=== PATIENT | female | born 1945 | race Caucasian/White ===

== ENCOUNTER 2024-01-28 11:04 | Day surgery (SDC) | payer BC, MEDICARE ==
[2024-01-24 10:36] LABS: BASOPHILS # (AUTO) 0.1 X10'3 (0-0.2); BASOPHILS % (AUTO) 0.9 % (0-1); EOSINOPHILS # (AUTO) 0.1 X10'3 (0-0.9); EOSINOPHILS % (AUTO) 1.9 % (0-6); HEMATOCRIT 38.9 % (35.0-45.0); HEMOGLOBIN 12.5 g/dl (12.0-16.0); LYMPHOCYTES # (AUTO) 1.4 X10'3 (1.1-4.8); LYMPHOCYTES % (AUTO) 23.5 % (21-51); MEAN CORPUSCULAR HEMOGLOBIN 30.7 PG (27.0-31.0); MEAN CORPUSCULAR VOLUME 95.8 FL (78-98); MONOCYTES # (AUTO) 0.5 X10'3 (0-0.9); MONOCYTES % (AUTO) 7.5 % (2-12); NEUTROPHILS % (AUTO) 66.2 % (42-75); PLATELET COUNT 118 X10'3 (140-440); RED BLOOD COUNT 4.06 X10'6 (4.20-5.60); RED CELL DISTRIBUTION WIDTH 16.5 % (11.5-14.5)
[2024-01-24 10:47] LABS: APTT 30 SECONDS (22-32); INR 3.1 INR; PROTHROMBIN TIME 30.8 SECONDS (9.0-12.0)
[2024-01-24 10:57] LABS: ALBUMIN 4.6 G/DL (3.4-5.0); ANION GAP 13 (8-16); BLOOD UREA NITROGEN 63 MG/DL (7-18); CALCIUM 9.5 MG/DL (8.5-10.1); CHLORIDE 102 MMOL/L (99-107); CHOL/HDL RATIO 2.6 (0.00-4.99); CHOLESTEROL 90 MG/DL (0-200); CREATININE 1.26 MG/DL (0.40-0.90); GLUCOSE 163 MG/DL (70-104); HDL CHOLESTEROL 35 MG/DL (35-60); LDL CHOLESTEROL 37 MG/DL (50-100); SODIUM 139 MMOL/L (135-145); TOTAL CARBON DIOXIDE 24.5 MMOL/L (24-32); TRIGLYCERIDES 162 MG/DL (20-135); eGFR 41 ML/MIN
[~2024-01-28] VITALS: Ht 175.3 cm; Wt 113.4 kg
[2024-01-28] VITALS (11 sets, daily range): BP systolic 148–195; BP diastolic 71–95; PULSE 77–100; RESP 12–17; TEMP 98.4; O2SAT 97–100
[~2024-01-28 11:04] MED LIST: ASPI-611 PO; CARCD120C PO; CLOP75TA34 PO; COU1T PO; DIGO125T PO; ENAL20TA75 PO; FURO-150 PO; GABA-330 PO; GABA-341 PO; HYDR-3965 PO; ISOS20TA57 PO; METF500T PO; PANT40TA39 PO; POTA8TAB46 PO; PRAV40TA65 PO; TRIA1TAB5 PO
[2024-01-28] MEDS ORDERED: diphenhydrAMINE 25mg capsule PO PRN (11:35)
[2024-01-28] MEDS ORDERED: LIDOcaine 1% (10mg/ml) 2ml vial ONE (12:00)
[2024-01-28 12:01] LABS: INR 1.5 INR; PROTHROMBIN TIME 16.1 SECONDS (9.0-12.0)
[2024-01-28] MEDS ORDERED: midazolam 1 mg/ML 2ml injection ONE (12:01)
[2024-01-28] MEDS ORDERED: iohexol 350MG/ML 100ml bottle IV ONE (12:01)
[2024-01-28] MEDS ORDERED: heparin 1,000unit/ml 10ml vial 10 ML ONE (12:01)
[2024-01-28] MEDS ORDERED: verapamil 2.5 mg/ml inj IV ONE (12:01)
[2024-01-28] MEDS ORDERED: fentaNYL/PF 50MCG/1 ML 2ML syringe ONE (12:01)
[2024-01-28] MEDS ORDERED: nitroGLYCERIN 500mcg/5mL D5W 5 ML IV ONE (12:04)
[2024-01-28] MEDS ORDERED: NITR0.4T48 SL (12:08)
[2024-01-28] MEDS ORDERED: ATOR-2 PO (12:08)
[2024-01-28] MEDS ORDERED: ALLO300T8 PO (12:08)
[2024-01-28] MEDS ORDERED: GLIM4TAB7 PO (12:08)
[2024-01-28] MEDS ORDERED: VALS160T30 PO (12:08)
[2024-01-28] MEDS ORDERED: GABA300C PO (12:08)
[2024-01-28] MEDS ORDERED: CARV6.2553 PO (12:08)
[2024-01-28] MEDS ORDERED: POTA-206 PO (12:08)
[2024-01-28] MEDS ORDERED: SPIR25TA5 PO (12:08)
[2024-01-28] MEDS: LORazepam 0.5 MG tablet PO PRN (12:09)
[2024-01-28] MEDS: normal saline 1,000 ML IV SCH (12:09)
[2024-01-28] MEDS ORDERED: WARF3TAB56 PO (12:11)
[2024-01-28] MEDS ORDERED: WARF-65 PO (12:11)
[2024-01-28] MEDS ORDERED: LIDOcaine 1% 30ml preserv. free vial ONE (12:29)
[2024-01-28] MEDS ORDERED: hydrALAZINE 20mg/ml inj. IV ONE (13:03)
[2024-01-28] MEDS ORDERED: HYDROcodone/acetaminophen 10/325mg tab PO PRN (14:35)
[2024-01-28] MEDS ORDERED: OXAZEpam 15mg capsule PO PRN (14:35)
[2024-01-28] MEDS ORDERED: ondansetron/PF 4mg/2ml inj IV PRN (14:35)
[2024-01-28] MEDS ORDERED: proCHLORperazine 10 MG/2 ml inj IV PRN (14:35)
[2024-01-28] MEDS ORDERED: HYDROcodone/acetaminophen 5mg/325mg tablet PO PRN (14:35)
[2024-02-18] MEDS ORDERED: LOSA-415 PO (12:58)
[2024-02-18] MEDS ORDERED: ERGO500093 PO (12:58)
[2024-02-18] MEDS ORDERED: GLIP-20 PO (12:58)
[2024-02-18] MEDS ORDERED: DOXA2TAB92 PO (12:58)
[2024-02-19] MEDS ORDERED: CHOL100024 PO (13:16)
== END 2024-01-28 18:00 | disposition home or self-care (01) ==
LOC: SSTAY O 11:04
PROVIDERS: ATTEND Student in an Organized Health Care Education/Training Program
DX: I35.0 Nonrheumatic aortic (valve) stenosis (principal); I49.3 Ventricular premature depolarization; I45.10 Unspecified right bundle-branch block; Z53.8 Procedure and treatment not carried out for other reasons; I10 Essential (primary) hypertension; E11.9 Type 2 diabetes mellitus without complications; I25.10 Atherosclerotic heart disease of native coronary artery without angina pectoris; E78.00 Pure hypercholesterolemia, unspecified; I48.91 Unspecified atrial fibrillation; G47.33 Obstructive sleep apnea (adult) (pediatric); Z79.01 Long term (current) use of anticoagulants; Z79.84 Long term (current) use of oral hypoglycemic drugs; Z79.899 Other long term (current) drug therapy; Z88.0 Allergy status to penicillin; Z88.5 Allergy status to narcotic agent
CPT/HCPCS: 36415; 80048; 80061; 82948; 85025; 85610; 85730; 93005; 93460; 99152; 99153; J0360; J1644; J2250; J3010; J3490; J7030; Q9967; A6449; C1751; C1894

== ENCOUNTER 2024-03-09 11:30 | Outpatient (CLI) | payer OTHER ==
[~2024-03-09 11:30] MED LIST changes: +ALLO300T8 PO; -ASPI-611 PO; +ATOR-2 PO; -CARCD120C PO; +CARV6.2553 PO; +CHOL100024 PO; -CLOP75TA34 PO; -COU1T PO; -DIGO125T PO; -ENAL20TA75 PO; -GABA-330 PO; -GABA-341 PO; +GABA300C PO; +GLIM4TAB7 PO; -HYDR-3965 PO; +NITR0.4T48 SL; +POTA-206 PO; -POTA8TAB46 PO; -PRAV40TA65 PO; +SPIR25TA5 PO; -TRIA1TAB5 PO; +VALS160T30 PO; +WARF-65 PO; +WARF3TAB56 PO
[2024-03-09 12:00] LABS: BASOPHILS # (AUTO) 0.1 X10'3 (0-0.2); BASOPHILS % (AUTO) 0.8 % (0-1); EOSINOPHILS # (AUTO) 0.1 X10'3 (0-0.9); EOSINOPHILS % (AUTO) 1.1 % (0-6); HEMATOCRIT 35.3 % (35.0-45.0); HEMOGLOBIN 11.4 g/dl (12.0-16.0); LYMPHOCYTES # (AUTO) 1.8 X10'3 (1.1-4.8); LYMPHOCYTES % (AUTO) 23.3 % (21-51); MEAN CORPUSCULAR HEMOGLOBIN 30.9 PG (27.0-31.0); MEAN CORPUSCULAR HGB CONC 32.3 g/dL (33.0-36.5); MEAN CORPUSCULAR VOLUME 95.5 FL (78-98); MEAN PLATELET VOLUME 9.6 FL (7.4-10.4); MONOCYTES # (AUTO) 0.5 X10'3 (0-0.9); NEUTROPHILS # (AUTO) 5.4 X10'3 (1.8-7.7); NEUTROPHILS % (AUTO) 68.8 % (42-75); PLATELET COUNT 137 X10'3 (140-440); RED BLOOD COUNT 3.69 X10'6 (4.20-5.60); RED CELL DISTRIBUTION WIDTH 17.5 % (11.5-14.5); WHITE BLOOD COUNT 7.9 X10'3 (4.5-11.0)
[2024-03-09 12:11] LABS: ALBUMIN 4.1 G/DL (3.4-5.0); ANION GAP 10 (8-16); BLOOD UREA NITROGEN 36 MG/DL (7-18); BUN/CREATININE RATIO 33.6 (10.0-20.0); CALCIUM 9.3 MG/DL (8.5-10.1); CHLORIDE 102 MMOL/L (99-107); CREATININE 1.07 MG/DL (0.40-0.90); GLUCOSE 114 MG/DL (70-104); SODIUM 141 MMOL/L (135-145); TOTAL CARBON DIOXIDE 29.3 MMOL/L (24-32); eGFR 50 ML/MIN
[2024-03-09 12:13] LABS: INR 2.9 INR; PROTHROMBIN TIME 29.3 SECONDS (9.0-12.0)
== END 2024-03-09 23:59 | disposition home or self-care (01) ==
LOC: LAB 11:30
PROVIDERS: ATTEND Family Medicine
DX: N17.9 Acute kidney failure, unspecified (principal)
CPT/HCPCS: 36415; 80048; 85025; 85610

== ENCOUNTER 2024-06-20 22:30 | Emergency (ER) | payer MEDICARE ==
[~2024-06-20] VITALS: Ht 175.3 cm; Wt 115.1 kg
[~2024-06-20 22:30] MED LIST changes: -GABA300C PO; +GABA300T28 PO; +GLIM1TAB56 PO; -GLIM4TAB7 PO; -ISOS20TA57 PO; +METF-436 PO; -METF500T PO
[2024-06-20 23:38] LABS: BASOPHILS # (AUTO) 0.1 X10'3 (0-0.2); BASOPHILS % (AUTO) 0.8 % (0-1); EOSINOPHILS # (AUTO) 0.4 X10'3 (0-0.9); EOSINOPHILS % (AUTO) 4.1 % (0-6); HEMATOCRIT 24.9 % (35.0-45.0); LYMPHOCYTES # (AUTO) 1.5 X10'3 (1.1-4.8); LYMPHOCYTES % (AUTO) 16.3 % (21-51); MEAN CORPUSCULAR HEMOGLOBIN 30.9 PG (27.0-31.0); MEAN CORPUSCULAR VOLUME 96.5 FL (78-98); MEAN PLATELET VOLUME 8.4 FL (7.4-10.4); MONOCYTES # (AUTO) 0.6 X10'3 (0-0.9); MONOCYTES % (AUTO) 6.4 % (2-12); NEUTROPHILS # (AUTO) 6.6 X10'3 (1.8-7.7); NEUTROPHILS % (AUTO) 72.4 % (42-75); PLATELET COUNT 209 X10'3 (140-440); RED BLOOD COUNT 2.58 X10'6 (4.20-5.60); RED CELL DISTRIBUTION WIDTH 17.9 % (11.5-14.5); WHITE BLOOD COUNT 9.1 X10'3 (4.5-11.0)
[2024-06-20 23:55] LABS: ANION GAP 6 (8-16); BLOOD UREA NITROGEN 20 MG/DL (7-18); BUN/CREATININE RATIO 20.8 (10.0-20.0); CALCIUM 8.6 MG/DL (8.5-10.1); CHLORIDE 101 MMOL/L (99-107); CREATININE 0.96 MG/DL (0.40-0.90); GLUCOSE 211 MG/DL (70-104); POTASSIUM 3.6 MMOL/L (3.5-5.1); SODIUM 135 MMOL/L (135-145); TOTAL CARBON DIOXIDE 27.7 MMOL/L (24-32); eCRCL 52 ML/MIN; eGFR 57 ML/MIN
[2024-06-21] MEDS: furosemide 10 MG/1 ML 10ml inj IV ONE (01:32)
[2024-06-21 03:50] VITALS: BP 187/118; PULSE 87; RESP 19; TEMP 98.2; O2SAT 98
== END 2024-06-21 03:55 | disposition home or self-care (01) ==
LOC: ER 22:31
DX: R42 Dizziness and giddiness (principal); I11.0 Hypertensive heart disease with heart failure; I50.9 Heart failure, unspecified; F41.9 Anxiety disorder, unspecified; I48.91 Unspecified atrial fibrillation; I25.10 Atherosclerotic heart disease of native coronary artery without angina pectoris; J44.9 Chronic obstructive pulmonary disease, unspecified; E11.9 Type 2 diabetes mellitus without complications; Z95.1 Presence of aortocoronary bypass graft; Z88.0 Allergy status to penicillin; Z88.2 Allergy status to sulfonamides; Z79.899 Other long term (current) drug therapy; Z79.84 Long term (current) use of oral hypoglycemic drugs; Z79.01 Long term (current) use of anticoagulants; Z86.73 Personal history of transient ischemic attack (TIA), and cerebral infarction without residual deficits
CPT/HCPCS: 36415; 80048; 84484; 85025; 96374; 99285; J1940

== ENCOUNTER 2024-09-03 09:58 | Emergency (ER) | payer MEDICARE ==
[~2024-09-03] VITALS: Ht 175.3 cm; Wt 81.6 kg
[2024-09-03 10:37] LABS: APTT 30 SECONDS (22-32); INR 2.6 INR; PROTHROMBIN TIME 25.1 SECONDS (9.0-12.0)
[2024-09-03 10:44] LABS: ALANINE AMINOTRANSFERASE 15 U/L (12-78); ALBUMIN 3.8 G/DL (3.4-5.0); ALBUMIN/GLOBULIN RATIO 1.1 (1.1-1.5); ALKALINE PHOSPHATASE 125 IU/L (46-116); ANION GAP 8 (8-16); ASPARTATE AMINO TRANSFERASE 27 U/L (10-37); BILIRUBIN,TOTAL 0.7 MG/DL (0.1-1.0); BLOOD UREA NITROGEN 25 MG/DL (7-18); BUN/CREATININE RATIO 27.8 (10.0-20.0); CALCIUM 8.9 MG/DL (8.5-10.1); CHLORIDE 102 MMOL/L (99-107); GLUCOSE 176 MG/DL (70-104); SODIUM 137 MMOL/L (135-145); TOTAL CARBON DIOXIDE 27.5 MMOL/L (24-32); TOTAL PROTEIN 7.2 G/DL (6.4-8.2); eCRCL 56 ML/MIN; eGFR 61 ML/MIN
[2024-09-03 10:47] LABS: BASOPHILS % (AUTO) 0.2 % (0-1); EOSINOPHILS % (AUTO) 0 % (0-6); HEMATOCRIT 30.1 % (35.0-45.0); HEMOGLOBIN 9.1 g/dl (12.0-16.0); LYMPHOCYTES # (AUTO) 0.7 X10'3 (1.1-4.8); MEAN CORPUSCULAR HEMOGLOBIN 25.7 PG (27.0-31.0); MEAN CORPUSCULAR HGB CONC 30.3 g/dL (33.0-36.5); MEAN CORPUSCULAR VOLUME 84.7 FL (78-98); MEAN PLATELET VOLUME 10.9 FL (7.4-10.4); MONOCYTES # (AUTO) 0.4 X10'3 (0-0.9); MONOCYTES % (AUTO) 6.8 % (2-12); NEUTROPHILS # (AUTO) 4.2 X10'3 (1.8-7.7); PLATELET COUNT 95 X10'3 (140-440); RED BLOOD COUNT 3.55 X10'6 (4.20-5.60); WHITE BLOOD COUNT 5.3 X10'3 (4.5-11.0)
[2024-09-03 10:52] LABS: PRO BRAIN NATRIURETIC PEPTIDE 1832 PG/ML (0-450)
[2024-09-03 11:00] LABS: POTASSIUM 4.3 MMOL/L (3.5-5.1)
[2024-09-03 12:10] VITALS: BP 156/74; PULSE 77; RESP 16; TEMP 97.9; O2SAT 98
== END 2024-09-03 12:13 | disposition home or self-care (01) ==
LOC: ER 09:58
DX: S00.83XA Contusion of other part of head, initial encounter (principal); J44.9 Chronic obstructive pulmonary disease, unspecified; I50.9 Heart failure, unspecified; I48.91 Unspecified atrial fibrillation; I11.0 Hypertensive heart disease with heart failure; E11.9 Type 2 diabetes mellitus without complications; I25.10 Atherosclerotic heart disease of native coronary artery without angina pectoris; I45.10 Unspecified right bundle-branch block; Z88.0 Allergy status to penicillin; Z88.2 Allergy status to sulfonamides; Z88.5 Allergy status to narcotic agent; Z79.899 Other long term (current) drug therapy; Z79.84 Long term (current) use of oral hypoglycemic drugs; Z86.73 Personal history of transient ischemic attack (TIA), and cerebral infarction without residual deficits; Z95.5 Presence of coronary angioplasty implant and graft; W22.8XXA Striking against or struck by other objects, initial encounter; Y93.89 Activity, other specified; Y92.89 Other specified places as the place of occurrence of the external cause; Y99.8 Other external cause status
CPT/HCPCS: 36415; 70450; 71045; 72125; 80053; 83880; 84484; 85025; 85610; 85730; 93005; 99285